=== PATIENT | female | born 1945 | race Caucasian/White ===

== ENCOUNTER → 2018-01-20 | Outpatient (CLI) | payer MEDICARE, BC | LOC: COL.RAD 07:14 | DX: K30 Functional dyspepsia (principal); K21.9 Gastro-esophageal reflux disease without esophagitis | CPT/HCPCS: A9541 ==

== ENCOUNTER 2020-07-05 09:58 | Outpatient (RCR) | payer MEDICARE, BC | END 2020-10-03 | disposition still patient (30) | LOC: WSST | DX: R13.13 Dysphagia, pharyngeal phase (principal); K21.9 Gastro-esophageal reflux disease without esophagitis; K31.84 Gastroparesis; R49.0 Dysphonia ==

== ENCOUNTER → 2020-07-18 | Outpatient (CLI) | payer MEDICARE, BC | LOC: COL.RAD 08:04 | DX: K21.9 Gastro-esophageal reflux disease without esophagitis (principal); K31.84 Gastroparesis; R49.0 Dysphonia ==